=== PATIENT | female | born 1945 | race Caucasian/White ===

== ENCOUNTER → 2025-01-28 08:23 | Outpatient (REF) | payer MEDICARE, SELFPAY ==
[2025-01-28 09:18] LABS: % Basophils 1.2 % (0-2); % Eosinophils 5.6 % (0-6); % Immature Granulocytes 0.2 % (0-0.5); % Lymphocytes 37.4 % (20.5-51.1); % Monocytes 10.1 % (1.7-9.3); % Neutrophils 45.5 % (42.2-75.2); Absolute Basophils 0.1 10^3/uL (0-0.2); Absolute Eosinophils 0.3 10^3/uL (0-0.7); Absolute Lymphocytes 1.9 10^3/uL (1.2-3.4); Absolute Monocytes 0.5 10^3/uL (0.1-0.6); Absolute Neutrophils 2.4 10^3/uL (1.4-6.5); Hematocrit 42.4 % (37.0-47.0); Hemoglobin 14.1 g/dL (12.0-16.0); Mean Corp Hgb Conc. 33.3 g/dL (33.0-37.0); Mean Corpuscular Hgb 30.7 pg (27.0-31.0); Mean Corpuscular Volume 92.2 fL (81.0-99.0); Mean Platelet Volume 9.5 fL (7.4-10.4); Nucleated Red Blood Cells % 0 %; Platelet Count 197 10^3/uL (130-400); Red Cell Dist. Width 12.6 % (11.5-14.5); White Blood Cell Count 5.2 10^3/uL (4.8-10.8)
[2025-01-28 09:33] LABS: Urine Albumin Negative (Neg - Trace); Urine Bilirubin Negative (Negative); Urine Character Clear (Clear); Urine Color Yellow; Urine Glucose Negative (Negative); Urine Ketone Negative (Negative); Urine Leukocyte 2+ (Negative); Urine Nitrite Negative (Negative); Urine Occult Blood Negative (Negative); Urine Specific Gravity 1.005 (<1.030); Urine Urobilinogen Negative (Neg - 1+)
[2025-01-28 10:01] LABS: ALT (SGPT) 21 U/L (0-35); AST (SGOT) 32 U/L (14-36); Albumin 4.3 g/dl (3.5-5.0); Alkaline Phosphatase 55 U/L (38-126); Blood Urea Nitrogen 16 mg/dl (7-17); Calcium 9.9 mg/dl (8.4-10.2); Carbon Dioxide 25 mmol/L (22-30); Chloride 108 mmol/L (98-107); Glucose 89 mg/dl (70-99); HDL Cholesterol 101 mg/dl; LDL Cholesterol, Calculated 158 mg/dl; Potassium 4.5 mmol/L (3.5-5.1); Sodium 140 mmol/L (135-145); Total Bilirubin 0.5 mg/dl (0.2-1.3); Total Cholesterol 274 mg/dl (50-199); Total Protein 6.9 g/dl (6.3-8.2); Triglyceride 76 mg/dl (10-149); Very Low Density Lipoprotein 15 mg/dl (0-30); eGFR > 60.00
[2025-01-28 10:17] LABS: TSH 1.79 uIU/ml (0.47-4.68)
[2025-01-28 11:42] LABS: Urine Amorphous Seen; Urine Mucus Many
[2025-01-28 11:43] LABS: Urine Red Blood Cell 0-2 /HPF (0-2)
== END ==
LOC: REG 08:23
PROVIDERS: ATTENDING PHYSICIAN Internal Medicine
DX: E78.00 Pure hypercholesterolemia, unspecified (principal); N63.11 Unspecified lump in the right breast, upper outer quadrant; I83.90 Asymptomatic varicose veins of unspecified lower extremity; Z00.00 Encounter for general adult medical examination without abnormal findings
CPT/HCPCS: 36415; 80053; 80061; 81003; 81015; 84443; 85025

== ENCOUNTER → 2025-03-08 08:51 | Outpatient (REF) | payer MEDICARE, SELFPAY | LOC: WDC 08:51 | PROVIDERS: ATTENDING PHYSICIAN Internal Medicine | DX: N63.11 Unspecified lump in the right breast, upper outer quadrant (principal) | CPT/HCPCS: 76642; 77062; 77066 ==

== ENCOUNTER → 2025-03-16 08:05 | Outpatient (REF) | payer MEDICARE, SELFPAY ==
--- NOTE | 2025-03-16 12:34 | OID.BR.INTR ---
[facility] Breast Navigator - Initial
- -
Date of Contact: 03/16/25
Met with patient. Patient given written information on navigator service available at [facility]. Will follow up as needed per protocol.
== END ==
LOC: WDC 08:05
PROVIDERS: ATTENDING PHYSICIAN Internal Medicine
DX: N63.11 Unspecified lump in the right breast, upper outer quadrant (principal); N63.31 Unspecified lump in axillary tail of the right breast
CPT/HCPCS: 19083; 19084; 88305; 88341; 88342; 88360

== ENCOUNTER → 2025-04-14 09:50 | Outpatient (REF) | payer MEDICARE, SELFPAY ==
[2025-04-14 09:52] LABS: Glucose 74 mg/dl (70-99)
== END ==
LOC: PET 09:50
PROVIDERS: ATTENDING PHYSICIAN Surgery; FAMILY PHYSICIAN Internal Medicine
DX: C50.411 Malignant neoplasm of upper-outer quadrant of right female breast (principal); Z01.812 Encounter for preprocedural laboratory examination
CPT/HCPCS: 36415; 82947

== ENCOUNTER → 2025-05-27 07:43 | Outpatient (REF) | payer MEDICARE, SELFPAY | LOC: WDC 07:43 | PROVIDERS: ATTENDING PHYSICIAN Surgery | DX: C50.411 Malignant neoplasm of upper-outer quadrant of right female breast (principal) | CPT/HCPCS: 38792; 76942; A9541 ==

== ENCOUNTER 2025-05-28 12:41 | Inpatient (IN) | payer MEDICARE, SELFPAY ==
[2025-05-17 09:21] LABS: Hematocrit 42.4 % (37.0-47.0); Hemoglobin 13.6 g/dL (12.0-16.0); Mean Corp Hgb Conc. 32.1 g/dL (33.0-37.0); Mean Corpuscular Volume 92.6 fL (81.0-99.0); Platelet Count 218 10^3/uL (130-400); Red Cell Dist. Width 12.4 % (11.5-14.5)
[2025-05-17 09:51] LABS: ALT (SGPT) 21 U/L (0-35); AST (SGOT) 31 U/L (14-36); Albumin 4.3 g/dl (3.5-5.0); Alkaline Phosphatase 57 U/L (38-126); Blood Urea Nitrogen 15 mg/dl (7-17); Calcium 9.5 mg/dl (8.4-10.2); Carbon Dioxide 27 mmol/L (22-30); Chloride 106 mmol/L (98-107); Glucose 79 mg/dl (70-99); Potassium 4.7 mmol/L (3.5-5.1); Sodium 139 mmol/L (135-145); Total Protein 6.9 g/dl (6.3-8.2); eGFR > 60.00
[2025-05-17 10:10] LABS: Prealbumin (Transthyretin) 23.2 mg/dl (17.6-36.0)
[2025-05-17 10:22] LABS: Vitamin D, 25-OH*** 55.4 ng/mL (30-80)
[2025-05-17 13:49] VITALS: BMI 21.7
[2025-05-28] VITALS (9 sets, daily range): BP systolic 117–147; BP diastolic 62–83; BMI 21.7
[2025-05-28] MEDS: TYLENOL 1000 MG PO (13:01)
[2025-05-28] MEDS: LOVENOX 40 MG SC (13:16)
[2025-05-28] MEDS: VANCOCIN 200 IV (13:20)
[2025-05-28] MEDS: NORMOSOL-R/PLASMALYTE-A 1000 IV (13:20)
--- NOTE | 2025-05-28 18:05 | PTCARENOTE ---
Patient admitted from pacu post modified right mastectomy and node dissection.The patient is drowsy but arousable.She denies any pain.All of the dressings are dry and intact.The patient is in her bed with the call forte in reach.
[2025-05-28] MEDS: COLACE 100 MG PO (20:25)
[2025-05-29 03:05] VITALS: BP 124/74
[2025-05-29 08:05] VITALS: BP 128/70
[2025-05-29] MEDS: PROTONIX 40 MG PO (08:19)
[2025-05-29] MEDS: BACTRIM 400 MG/80 MG 1 TABLET PO (08:19)
[2025-05-29] MEDS: COLACE 100 MG PO (08:19)
--- NOTE | 2025-05-29 09:15 | W.PN.UPDATE ---
Update Note
Progress Note Update
The patient is POD #1 S/P right modified radical mastectomy for the treatment of locally advanced right breast carcinoma. Pre-operatively, there was no evidence of lymph node involvement, but in the OR there was extensive metastatic disease to the
axilla necessitating an axillary dissection. The patient had some right arm swelling that has resolved with arm elevation, but she is at significant risk of lymphedema and will be referred to one of our lymphedema specialists. She has taken no pain
med after surgery and will take Tylenol or aspirin at home. Wound clean and dry with no evidence of bleeding. Drains functioning well. Will discharge to home and see her in 10-14 days for a post op check.
--- NOTE | 2025-05-29 09:20 | W.DS.TRANS ---
DC Summary - [facility]oon [facility]
-
Discharge Instructions:
Sleep Apnea Risk Low
Instructions:
Stand-Alone Forms:
Changes to Home Medications: No
Discharge Medications:
DC Medications w/original date entered in [facility]
cod liver oil 1 cap PO DAILY 05/21/25
cranberry 2 tab PO DAILY 05/21/25
gnaqlrye-xcwp-wpow 8 mg-folic 400 mcg-K 50 mcg-lutein 300 mcg tablet (Centrum Silver Women) 1 tab PO DAILY 05/21/25
vitamin E 1 dose PO DAILY 05/21/25
Home Medication Changes
Pending Results: Yes (pathology on right breast and axillary contents)
Total time spent discharging patient (in min): 20
--- NOTE | 2025-05-29 09:32 | W.IMMPOSTOP ---
Surgical Immed Post Op Note
-
Primary Surgeon: Taylor
Assisting Surgeon: None
Pre-op Diagnosis: Right breast ca
Post-op Diagnosis: Same
Procedure Performed: Right modified radical mastectomy
Anesthesia Type: GEN
Specimen / Cultures: Right breast and axillary contents
Estimated Blood Loss: 100cc
Complications: None
Operative Findings: Extensive axillary disease
--- NOTE | 2025-05-29 09:33 | OR.RPT ---
Operative Report
Operative Report
Date of procedure: 05/28/2025
Surgeon: Nicola
Preoperative diagnosis: Right breast carcinoma
Postoperative diagnosis: Right breast carcinoma
Procedure: Right modified radical mastectomy
The patient is an 79-year-old female who presented with locally advanced right breast carcinoma. Metastatic workup revealed no evidence of distant disease and she presented for right mastectomy and sentinel lymph node mapping and biopsy.
Preoperatively there was no definitive evidence of lymph node involvement. On the day prior to the procedure she presented to the [facility] where technetium radiotracer was injected into the breast parenchyma. On the day of the
procedure she presented to the same-day surgical services unit where she was prepped. She verified site and procedure and DVT and antibiotic prophylaxis were provided.
She was taken to the operating room and in the supine position general anesthesia was induced. The right breast chest and axilla were prepped and draped in usual sterile fashion. An appropriate timeout was performed by all staff members. A
standard Bro incision was made sharply with the blade incorporating resection of the nipple areolar complex and redundant skin. Skin flaps were elevated using the cautery and larger vessels were controlled with 3-0 silk tie. The breast was
taken off the chest wall and a superior to inferior dimension, oriented for the pathologist, and time out of body was noted. The specimen was placed in formalin with time in formalin noted.
This is permitted entry into the axilla and when clavipectoral fascia was incised it was obvious that with multiple involved matted lymph nodes. Carefully level 2 was carried dissection was performed taking care not to work on or above the axillary
vein. Long thoracic nerve was identified and preserved throughout its course as well as 1 intercostal brachial nerve. Thoracodorsal nerve was preserved as well. Feeding vessels to the nodes were controlled by tying with 3-0 silk or using
hemoclips. Contents were sent for permanent analysis and afterwards hemostasis was carefully maintained. The area containing the positive disease was clipped for further radiotherapy planning if needed. The wound was closed after placing 2-19
Divehi Darryl drains brought out through the inferior skin flap and secured with 2-O Prolene. Skin was closed using the tensor stapler and external lizzy to decrease risk of infection. A sterile compressive dressing was applied. All sponge
needle and instrument counts were correct and the patient was transferred to the recovery room in stable condition
()
Axillary Lymph Node Dissection
-
Operation performed with Curative Intent: Yes
Boundaries: Axillary Vein, Chest Wall, Latissimus Dorsi
Resection performed within boundaries: Yes
Nerves ID'd & Preserved during Dissection: Long Thoracic Nerves, Thoracodorsal Nerve and Branches of Intercostobrachial Nerves
Level III Nodes were Removed: No
--- NOTE | 2025-05-29 10:46 | CM ---
CM met with pt bedside
Pt resides with her spouse in a 2SH with 2STE
Pt has a full bedroom and shower on 1st floor, elevator to basement and 2nd floor if needed
Pt is independent with her ADLs without any ADs
She has a WW for use if needed
Denies financial insecurities and Rx coverage through [employer]
PCP- Jitendra Gama
Rx- [facility] [address]
Pt is POD#1 mastectomy
Referral to [facility] for drain care per pt request- SOC tomorrow
Dtr/Latoya visiting from [place] for the next week to support pt at home
IMM verbally reviewed- copy provided bedside
Discussion with nursing who will provide drain bedside teaching to pt and family prior to dc
Discharge Disposition- home with VN and family support- family transport
[2025-05-29 11:05] VITALS: BP 132/70
[2025-05-29 14:52] VITALS: BP 119/63
== END 2025-05-29 15:30 | disposition home health service (06) | DRG 582 ==
LOC: 2 SOUTH 12:41
PROVIDERS: ADMITTING PHYSICIAN Surgery; FAMILY PHYSICIAN Internal Medicine
PROC: 0HTT0ZZ Resection of Right Breast, Open Approach (ICD-10-PCS; 2025-05-29)
DX: C50.911 Malignant neoplasm of unspecified site of right female breast (principal); C77.3 Secondary and unspecified malignant neoplasm of axilla and upper limb lymph nodes
CPT/HCPCS: 36415; 38792; 76942; 80053; 82306; 84134; 85027; 88307; 88342; 93005; A4648; A9541; L8000

== ENCOUNTER → 2025-06-29 10:22 | Outpatient (REF) | payer MEDICARE, SELFPAY ==
[2025-06-29 11:15] LABS: Hematocrit 43.5 % (37.0-47.0); Hemoglobin 14.2 g/dL (12.0-16.0); Mean Corp Hgb Conc. 32.6 g/dL (33.0-37.0); Mean Corpuscular Volume 93.5 fL (81.0-99.0); Nucleated Red Blood Cells % 0 %; Platelet Count 209 10^3/uL (130-400); Red Cell Dist. Width 12.1 % (11.5-14.5)
[2025-06-29 11:34] LABS: ALT (SGPT) 21 U/L (0-35); AST (SGOT) 29 U/L (14-36); Albumin 4.5 g/dl (3.5-5.0); Alkaline Phosphatase 60 U/L (38-126); Total Protein 6.3 g/dl (6.3-8.2)
[2025-06-30 16:11] LABS: CA 27-29 67.2 U/mL (<=39.0)
== END ==
LOC: REG 10:22
PROVIDERS: ATTENDING PHYSICIAN Internal Medicine Hematology & Oncology
DX: C50.411 Malignant neoplasm of upper-outer quadrant of right female breast (principal)
CPT/HCPCS: 36415; 80076; 85025; 86300

== ENCOUNTER 2025-07-07 07:16 | Outpatient (RCR) | payer MEDICARE, SELFPAY | END 2025-07-07 23:59 | disposition home or self-care (01) | LOC: RPT 07:16 | PROVIDERS: ATTENDING PHYSICIAN Surgery; FAMILY PHYSICIAN Family Medicine | DX: C50.411 Malignant neoplasm of upper-outer quadrant of right female breast (principal); Z73.6 Limitation of activities due to disability; L90.5 Scar conditions and fibrosis of skin; M62.81 Muscle weakness (generalized); Z90.11 Acquired absence of right breast and nipple | CPT/HCPCS: 97110; 97140; 97163; 97530 ==

== ENCOUNTER 2025-08-03 12:30 | Outpatient (RCR) | payer MEDICARE, SELFPAY | END 2025-08-03 23:59 | disposition home or self-care (01) | LOC: RPT 12:30 | PROVIDERS: ATTENDING PHYSICIAN Surgery; FAMILY PHYSICIAN Family Medicine | DX: C50.411 Malignant neoplasm of upper-outer quadrant of right female breast (principal); Z73.6 Limitation of activities due to disability; L90.5 Scar conditions and fibrosis of skin; M62.81 Muscle weakness (generalized); Z90.11 Acquired absence of right breast and nipple | CPT/HCPCS: 97110; 97140 ==